=== PATIENT | female | born 1960 | race Caucasian/White ===

== ENCOUNTER 2016-06-10 10:04 | Emergency (ER) | payer OTHER ==
[~2016-06-10] VITALS: Ht 154.9 cm; Wt 75.0 kg
[2016-06-10 10:16] LABS: GLUCOSE,POINT OF CARE 204 MG/DL (70-110)
[2016-06-10] MEDS ORDERED: METF500T4 PO (10:17)
[2016-06-10] MEDS ORDERED: HydrOXYzine PAMOATE 50 MG CAPSULE PO ONE (10:30)
[2016-06-10 10:42] LABS: BASOPHILS % (AUTO) 0.7 % (0.0-2.0); EOSINOPHILS % (AUTO) 1.2 % (1.0-6.0); HEMATOCRIT 45.1 % (36-46); HEMOGLOBIN 14.7 g/dL (12.0-16.0); LYMPHOCYTES # (AUTO) 1.4 K/uL (1.0-4.8); LYMPHOCYTES % (AUTO) 26.6 % (22.0-44.0); MEAN CORPUSCULAR HEMOGLOBIN 29.1 pg (26.0-34.0); MEAN CORPUSCULAR HGB CONC 32.6 G/dL (31.0-37.0); MEAN CORPUSCULAR VOLUME 89 fL (80-100); MONOCYTES # (AUTO) 0.3 K/uL (0.1-1.0); MONOCYTES % (AUTO) 5.2 % (2.0-9.0); NEUTROPHILS # (AUTO) 3.5 K/uL (1.8-7.7); NEUTROPHILS % (AUTO) 66.3 % (40.0-70.0); PLATELET COUNT (AUTO) 278 K/uL (150-450); RED BLOOD CELL COUNT(AUTO) 5.07 MIL/uL (4.00-5.20); RED CELL DISTRIBUTION WIDTH 13.8 % (11.5-14.5); WHITE BLOOD COUNT (AUTO) 5.3 K/uL (4.5-11.0)
[2016-06-10 10:51] LABS: ANION GAP 11 mmol/L (8-16); CALCIUM, TOTAL 9.5 mg/dL (8.8-10.5); CARBON DIOXIDE 27 mmol/L (22-29); CHLORIDE 101 mmol/L (98-107); CREATININE 0.58 mg/dL (0.60-1.30); GLOMERULAR FILTR. RATE CALC > 60 mL/min (>60); POTASSIUM 3.7 mmol/L (3.5-5.1); SODIUM SERUM 139 mmol/L (136-145); UREA NITROGEN, BLOOD 14 mg/dL (7-18)
[2016-06-10 10:56] LABS: ALANINE AMINOTRANSFERASE 62 U/L (12-78); ALBUMIN 4.3 g/dL (3.4-5.0); ASPARTATE AMINOTRANSFERASE 37 U/L (15-37); BILIRUBIN,TOTAL 0.5 mg/dL (0.1-1.0); TOTAL PROTEIN, SERUM 8.2 g/dL (6.4-8.2)
[2016-06-10 11:47] VITALS: BP 171/93
== END 2016-06-10 12:14 | disposition home or self-care (01) ==
LOC: EMS 10:08
DX: I10 Essential (primary) hypertension (principal); F41.9 Anxiety disorder, unspecified; E11.9 Type 2 diabetes mellitus without complications
CPT/HCPCS: 82962; 93005; 99285